=== PATIENT | female | born 1980 | race Caucasian/White ===

== ENCOUNTER 2022-08-19 10:03 | Emergency (ER) | payer BC ==
[~2022-08-19] VITALS: Ht 157 cm; Wt 43.0 kg
[~2022-08-19 10:03] MED LIST: HYDR1CAP2 PO
[2022-08-19 10:38] LABS: BILIRUBIN,URINE NEGATIVE (NEGATIVE); CLARITY,URINE SL CLOUDY; COLOR,URINE YELLOW; GLUCOSE, URINE (UA) NEGATIVE (NEGATIVE); KETONES,URINE NEGATIVE (NEGATIVE); LEUKOCYTE ESTERASE ,URINE 3+ (NEGATIVE); NITRITE,URINE POSITIVE (NEGATIVE); PROTEIN,URINE 3+ (NEGATIVE)
[2022-08-19 11:00] LABS: RBC,URINE >100 /HPF
[2022-08-19 11:01] LABS: BACTERIA,URINE MODERATE /HPF; WBC,URINE TNTC /HPF
--- NOTE | 2022-08-19 11:22 | ED Abdominal Pain ---
General Chief Complaint: - Reproductive Stated Complaint: ABD AND LOWER BACK PAIN Nursing Triage Note: PT PRESENTS TO ED VIA POV FROM HOME WITH COMPLAINTS OF BURNING WITH URINATION X 1 WEEK, L FLANK PAIN THAT RADIATES TO FRONT STARTING THIS AM. Source of Information: Patient Exam Limitations: No Limitations History of Present Illness Date Seen by Provider: Aug 19, 2022 Time Seen by Provider: 10:13 Initial Comments This 42-year-old woman presents to the emergency room with complaints of right flank pain x1 week that now is radiating down into the abdomen. The pain in the abdomen started this morning. She has history of ureteral stones which is reminiscent of her current symptoms. She also has dysuria. She is afebrile and not septic in appearance. Allergies and Home Medications Allergies Coded Allergies: No Known Drug Allergies (Unverified , 08/19/22) Patient Home Medication List Home Medication List Reviewed: Yes Cefdinir (Cefdinir) 300 Mg Capsule, 300 MG PO BID Prescribed by: CHELSI HAN on 08/19/22 1329 Hydrocodone Bit/Acetaminophen (Hydrocodone-Apap 5-500 Cap) 1 Each Capsule, 1-2 EACH PO Q 4 - 6 HRS PRN Prescribed by: ARA IGLESIAS on 08/06/10 1754 Ondansetron (Ondansetron Odt) 4 Mg Tab.rapdis, 4 MG SL Q4H PRN for NAUSEA/VOMITING Prescribed by: CHELSI HAN on 08/19/22 1329 Phenazopyridine HCl (Pyridium) 200 Mg Tablet, 1 TAB PO TID PRN for PAIN Prescribed by: CHELSI HAN on 08/19/22 1329 Tramadol HCl (Tramadol HCl) 50 Mg Tablet, 50 MG PO Q6H PRN for PAIN BREAKTROUGH Prescribed by: CHELSI HAN on 08/19/22 1330 Review of Systems Review of Systems Constitutional: no symptoms reported EENTM: No Symptoms Reported Respiratory: No Symptoms Reported Cardiovascular: No Symptoms Reported Gastrointestinal: See HPI Genitourinary: See HPI Musculoskeletal: no symptoms reported Skin: no symptoms reported Psychiatric/Neurological: No Symptoms Reported Endocrine: No Symptoms Reported Hematologic/Lymphatic: No Symptoms Reported Past Mvlbuxx-Dspvcq-Fhdpuh Hx Patient Social History Tobacco Use?: Yes Tobacco type used: Cigarettes Smoking Status: Current Everyday Smoker Use of E-Cig and/or Vaping dev: Yes E-Cig or Vaping type used: Nicotine Use of E-Cig and/or Vaping Buddy: Current Everyday User Substance use?: Yes Substance type: Marijuana Alcohol Use?: No Pt feels they are or have been: No Past Medical History Surgery/Hospitalization HX: kidney stones, glaucoma, ptsd, panic attacks Surgeries: No Respiratory: No Cardiac: No Neurological: No Genitourinary: Yes Kidney Stones Gastrointestinal: No Musculoskeletal: No Endocrine: No HEENT: No Cancer: No Psychosocial: Yes Anxiety, PTSD Physical Exam Vital Signs Vital Signs - First Documented 08/19/22 10:24 Temp 35.9 Pulse 62 Resp 16 B/P (MAP) 121/77 (92) Pulse Ox 99 Capillary Refill : Less Than 3 Seconds Height/Weight/BMI Height: '" Weight: lbs. oz. kg; 17.00 BMI Method: General Appearance: WD/WN, mild distress HEENT: PERRL/EOMI, normal ENT inspection Neck: normal inspection Respiratory: lungs clear, normal breath sounds, no respiratory distress Cardiovascular: regular rate, rhythm, no edema, no murmur Gastrointestinal: normal bowel sounds, soft; No distended; tenderness (Right abdomen) Extremities: normal inspection, no pedal edema Neurologic/Psychiatric: no motor/sensory deficits, alert, normal mood/affect, oriented x 3 Skin: normal color, warm/dry Progress/Results/Core Measures Results/Orders Lab Results Laboratory Tests Test 08/19/22 10:31 08/19/22 10:46 Range/Units Urine Color YELLOW Urine Clarity SL CLOUDY Urine pH 7.0 5-9 Urine Specific [place] 1.020 1.016-1.022 Urine Protein 3+ H NEGATIVE Urine Glucose (UA) NEGATIVE NEGATIVE Urine Ketones NEGATIVE NEGATIVE Urine Nitrite POSITIVE H NEGATIVE Urine Bilirubin NEGATIVE NEGATIVE Urine Urobilinogen 1.0 < = 1.0 MG/DL Urine Leukocyte Esterase 3+ H NEGATIVE Urine RBC (Auto) 3+ H NEGATIVE Urine RBC >100 H /HPF Urine WBC TNTC H /HPF Urine Squamous Epithelial Cells 2-5 /HPF Urine Crystals NONE /LPF Urine Bacteria MODERATE H /HPF Urine Casts NONE /LPF Urine Mucus SMALL H /LPF Urine Culture Indicated YES White Blood Count 9.1 4.3-11.0 10^3/uL Red Blood Count 4.59 3.80-5.11 10^6/uL Hemoglobin 15.6 11.5-16.0 g/dL Hematocrit 45 35-52 % Mean Corpuscular Volume 97 80-99 fL Mean Corpuscular Hemoglobin 34 25-34 pg Mean Corpuscular Hemoglobin Concent 35 32-36 g/dL Red Cell Distribution Width 13.2 10.0-14.5 % Platelet Count 259 130-400 10^3/uL Mean Platelet Volume 9.7 9.0-12.2 fL Immature Granulocyte % (Auto) 0 % Neutrophils (%) (Auto) 83 H 42-75 % Lymphocytes (%) (Auto) 11 L 12-44 % Monocytes (%) (Auto) 5 0-12 % Eosinophils (%) (Auto) 1 0-10 % Basophils (%) (Auto) 0 0-10 % Neutrophils # (Auto) 7.5 1.8-7.8 10^3/uL Lymphocytes # (Auto) 1.0 1.0-4.0 10^3/uL Monocytes # (Auto) 0.4 0.0-1.0 10^3/uL Eosinophils # (Auto) 0.1 0.0-0.3 10^3/uL Basophils # (Auto) 0.0 0.0-0.1 10^3/uL Immature Granulocyte # (Auto) 0.0 0.0-0.1 10^3/uL Sodium Level 135 135-145 MMOL/L Potassium Level 3.5 L 3.6-5.0 MMOL/L Chloride Level 102 98-107 MMOL/L Carbon Dioxide Level 23 21-32 MMOL/L Anion Gap 10 5-14 MMOL/L Blood Urea Nitrogen 4 L 7-18 MG/DL Creatinine 0.79 0.60-1.30 MG/DL Estimat Glomerular Filtration Rate 96 BUN/Creatinine Ratio 5 Glucose Level 92 70-105 MG/DL Calcium Level 9.8 8.5-10.1 MG/DL Corrected Calcium 9.4 8.5-10.1 MG/DL Total Bilirubin 0.4 0.1-1.0 MG/DL Aspartate Amino Transf (AST/SGOT) 11 5-34 U/L Alanine Aminotransferase (ALT/SGPT) 10 0-55 U/L Alkaline Phosphatase 65 40-136 U/L C-Reactive Protein High Sensitivity 0.08 0.00-0.50 MG/DL Total Protein 7.6 6.4-8.2 GM/DL Albumin 4.5 3.2-4.5 GM/DL Serum Test, Qualitative NEGATIVE NEGATIVE Micro Results Microbiology 08/19/22 Urine Culture - Final, Complete Escherichia coli My Orders Orders - CHELSI HILTON MD Ua Culture If Indicated (08/19/22 10:13) Urine Culture (08/19/22 10:31) Cbc With Automated Diff (08/19/22 11:16) Comprehensive Metabolic Panel (08/19/22 11:16) Hs C Reactive Protein (08/19/22 11:16) Ed Iv/Invasive Line Start (08/19/22 11:16) Lactated Ringers (Lr 1000 Ml Iv Solution (08/19/22 11:30) Ketorolac Injection (Toradol Injection) (08/19/22 11:30) Hcg,Qualitative Serum (08/19/22 11:16) Ondansetron Injection (Zofran Injectio (08/19/22 11:30) Ct Abd/Pelvis Wo(Kidney Stone) (08/19/22 11:21) Ceftriaxone Pre-Mix (Rocephin Pre-Mix) (08/19/22 12:36) Medications Given in ED Vital Signs/I&O 08/19/22 08/19/22 10:24 13:46 Temp 35.9 35.9 Pulse 62 67 Resp 16 16 B/P (MAP) 121/77 (92) 115/72 Pulse Ox 99 99 Blood Pressure Mean: 92 Progress Progress Note : Progress Note Patient was interviewed and examined along with MS3 Natanael Pineda. Pain was treated with Toradol. Nausea was treated with Zofran. She was hydrated with a liter of IV fluid. Labs were evaluated and interpreted by me. Serum studies including CBC, CMP, CRP, and serum test were all unremarkable by my interpretation. Urinalysis was grossly positive for pyuria and hematuria. Due to her symptoms reminiscent of ureteral stone and significant blood on the urinalysis, CT of the abdomen was obtained. I viewed the CT and no renal calcu li or obstruction were noted by my interpretation. There is no evidence of ureteral stone or obstruction on that CT by radiologist's interpretation either. Pyelonephritis diagnosed, and she was treated with Rocephin. See discharge instructions for further discussion. Patient was discharged in much improved condition. Discharge instructions and prescriptions were reviewed with patient and significant other. Diagnostic Imaging Diagonstic Imaging: CT Plain Films/CT/US/NM/MRI: abdomen, pelvis Comments NAME: ROLDAN [facility]WARDS [facility] REC#: [id number] PT STATUS: DEP ER : [id number] PHYSICIAN: CHELSI HILTON MD ADMIT DATE: 08/19/22/ER Signed Date of Exam:08/19/22 CT ABD/PELVIS WO(KIDNEY STONE) PROCEDURE: CT urinary tract, rule out kidney stone. TECHNIQUE: Multiple contiguous axial images were obtained through the abdomen and pelvis without the use of intravenous contrast. Auto Exposure Controls were utilized during the CT exam to meet ALARA standards for radiation dose reduction. INDICATION: Right flank pain and microhematuria. No prior studies are available for comparison. FINDINGS: The lung bases are clear. The liver and gallbladder are unremarkable. No biliary ductal dilatation is seen. Pancreas and spleen are unremarkable. No adrenal mass is identified. No renal calculi are detected. No definite ureteral calculi or evidence of hydronephrosis is identified. There are some calcifications in the right pelvis which likely represent phleboliths. The uterus and ovaries are unremarkable. Bowel loops are normal caliber. There is no obstruction. Minimal free fluid in the pelvis which is likely physiologic. IMPRESSION: Unremarkable noncontrast CT of abdomen and pelvis. No definite urinary tract calculi or obstruction is identified. Dictated by: Dictated on workstation # [id number] Dict: 08/19/22 1223 Trans: 08/19/22 1606 [id number] Interpreted by: MATEUS SILVA MD Electronically signed by: MATEUS SILVA MD 08/19/22 1606 Departure Impression Primary Impression: Pyelonephritis Additional Impression: Urinary tract infection Qualified Codes: N39.0 - Urinary tract infection, site not specified; R31.9 - Hematuria, unspecified Disposition: 01 HOME, SELF-CARE Condition: Improved Departure-Patient Inst. Decision time for Depature: 13:24 Referrals: NO,LOCAL PHYSICIAN (PCP/Family) Primary Care Physician Patient Instructions: Kidney Infection Add. Discharge Instructions: Drink plenty of clear liquids to stay well-hydrated. For primary pain control take ibuprofen up to 400 mg every 6 hours or naproxen up to 500 mg twice a day. Add Tylenol (acetaminophen) up to 650 mg every 6 hours as needed for additional pain control. For more severe pain that is not controlled by [id number]-[id number] medications, you may take tramadol (Ultram) as prescribed. Ultram may cause drowsiness, so do not drive, operate machinery, or make important decisions while taking it. It may also cause constipation, so you may wish to use a stool softener such as Colace while on Ultram. You may use Pyridium to help numb your bladder. This should help with pain in your pelvis or bladder cramping pain. Pyridium may turn your urine a reddish or orange color. Do not be alarmed if this happens. Use the Zofran (ondansetron) as prescribed for nausea or vomiting. Complete the entire course of your antibiotics as prescribed. Start cefdinir tomorrow morning. Call back to the emergency room on Friday afternoon to review urine culture results. The phone number is above. Return to the emergency room if you have worsening symptoms or develop new symptoms such as fever despite following these instructions. All discharge instructions reviewed with patient and/or family. Voiced unders tanding. Scripts Tramadol HCl (Tramadol HCl) 50 Mg Tablet 50 MG PO Q6H PRN for PAIN BREAKTROUGH, #10 TAB Prov: CHELSI HILTON MD 08/19/22 Ondansetron (Ondansetron Odt) 4 Mg Tab.rapdis 4 MG SL Q4H PRN for NAUSEA/VOMITING, #10 TAB Prov: CHELSI HILTON MD 08/19/22 Cefdinir (Cefdinir) 300 Mg Capsule 300 MG PO BID, #14 CAP 0 Refills Prov: CHELSI HILTON MD 08/19/22 Phenazopyridine HCl (Pyridium) 200 Mg Tablet 1 TAB PO TID PRN for PAIN, #10 TAB For bladder pain Prov: CHELSI HILTON MD 08/19/22 CHELSI HILTON MD Aug 19, 2022 11:22
[2022-08-19 11:24] LABS: BASOPHILS % (AUTO) 0 % (0-10); EOSINOPHILS # (AUTO) 0.1 10^3/uL (0.0-0.3); EOSINOPHILS % (AUTO) 1 % (0-10); HEMATOCRIT 45 % (35-52); HEMOGLOBIN 15.6 g/dL (11.5-16.0); LYMPHOCYTES % (AUTO) 11 % (12-44); MEAN CORPUSCULAR HEMOGLOBIN 34 pg (25-34); MEAN CORPUSCULAR HGB CONC 35 g/dL (32-36); MEAN CORPUSCULAR VOLUME 97 fL (80-99); MEAN PLATELET VOLUME 9.7 fL (9.0-12.2); MONOCYTES # (AUTO) 0.4 10^3/uL (0.0-1.0); MONOCYTES % (AUTO) 5 % (0-12); NEUTROPHILS # (AUTO) 7.5 10^3/uL (1.8-7.8); NEUTROPHILS % (AUTO) 83 % (42-75); PLATELET COUNT 259 10^3/uL (130-400); WHITE BLOOD COUNT 9.1 10^3/uL (4.3-11.0)
[2022-08-19 11:28] LABS: ALBUMIN 4.5 GM/DL (3.2-4.5); POTASSIUM 3.5 MMOL/L (3.6-5.0)
[2022-08-19 11:29] LABS: CALCIUM 9.8 MG/DL (8.5-10.1)
[2022-08-19] MEDS ORDERED: LACTATED RINGERS 1,000 ML IV ONE (11:30)
[2022-08-19] MEDS ORDERED: KETOROLAC 30 MG/ML VIAL IVP ONE (11:30)
[2022-08-19] MEDS ORDERED: ONDANSETRON 4 MG/2 ML (SDV) Z0FRAN IVP ONE (11:30)
[2022-08-19 11:31] LABS: TOTAL PROTEIN 7.6 GM/DL (6.4-8.2)
[2022-08-19 11:32] LABS: BILIRUBIN,TOTAL 0.4 MG/DL (0.1-1.0)
[2022-08-19 11:34] LABS: CREATININE SERUM 0.79 MG/DL (0.60-1.30)
--- NOTE | 2022-08-19 12:32 | Diagnostic Imaging Report ---
PROCEDURE: CT urinary tract, rule out kidney stone. TECHNIQUE: Multiple contiguous axial images were obtained through the abdomen and pelvis without the use of intravenous contrast. Auto Exposure Controls were utilized during the CT exam to meet ALARA standards for radiation dose reduction. INDICATION: Right flank pain and microhematuria. No prior studies are available for comparison. FINDINGS: The lung bases are clear. The liver and gallbladder are unremarkable. No biliary ductal dilatation is seen. Pancreas and spleen are unremarkable. No adrenal mass is identified. No renal calculi are detected. No definite ureteral calculi or evidence of hydronephrosis is identified. There are some calcifications in the right pelvis which likely represent phleboliths. The uterus and ovaries are unremarkable. Bowel loops are normal caliber. There is no obstruction. Minimal free fluid in the pelvis which is likely physiologic. IMPRESSION: Unremarkable noncontrast CT of abdomen and pelvis. No definite urinary tract calculi or obstruction is identified. Dictated by: Dictated on workstation # [id number]
[2022-08-19] MEDS ORDERED: cefTRIAXone PRE-MIX 50 ML IV STA (12:36)
[2022-08-19] MEDS ORDERED: ONDA4TAB11 SL (13:29)
[2022-08-19] MEDS ORDERED: CEFD300C3 PO (13:29)
[2022-08-19] MEDS ORDERED: TRAM50TA3 PO (13:29)
[2022-08-19] MEDS ORDERED: PHEN-640 PO (13:29)
[2022-08-19 13:46] VITALS: BP 115/72
== END 2022-08-19 13:46 | disposition home or self-care (01) ==
LOC: EDUNIT# 10:03 → ER 10:08
DX: N12 Tubulo-interstitial nephritis, not specified as acute or chronic (principal); N39.0 Urinary tract infection, site not specified; F17.210 Nicotine dependence, cigarettes, uncomplicated
CPT/HCPCS: 36415; 74176; 80053; 81000; 84703; 85025; 86141; 87077; 87088